=== PATIENT | male | born 1975 | race Caucasian/White ===

== ENCOUNTER → 2018-05-17 | Outpatient (CLI) | payer BC ==
--- NOTE | 2018-05-17 14:35 | RAD ---
Examination: Ultrasound kidneys HISTORY: History of ureteral calculus. COMPARISON: None available. FINDINGS: The right kidney measures 13.7 x 5.9 x 7.2 cm. The left kidney measures 13.4 x 6.7 x 6.6 cm. Multiple tiny calcifications identified in the right and left kidneys likely nephrolithiasis. No evidence of hydronephrosis. Urinary bladder is mildly distended. IMPRESSION: Bilateral nephrolithiasis. Electronically signed by: David Parks MD (05/17/2018 2:32 PM) [id number]
== END | disposition home or self-care (01) ==
LOC: US 10:04
PROVIDERS: ATTEND Urology
DX: N20.0 Calculus of kidney (principal)
CPT/HCPCS: 76770